=== PATIENT | female | born 1980 | race Caucasian/White ===

== ENCOUNTER 2017-04-11 08:13 | Emergency (ER) | payer OTHER ==
[~2017-04-11] VITALS: Ht 157.4 cm; Wt 48.1 kg
[~2017-04-11 08:13] MED LIST: AMOXICILLIN500 MG PO; BIRTH CONTROL1 EAC1 PO; CLARITIN10 MG PO; CLINDAMYCIN HC300 MG PO; DIFLUCAN150 MG PO; EES400 MG PO; FLONASE 0.05% 121 EA NAS; MOTRIN800 MG PO; PREDNICOT20 MG PO; ZITHROMAX Z PA250 MG PO
[2017-04-11] MEDS ORDERED: NAPROSYN500 MG PO (08:25)
[2017-04-11] MEDS ORDERED: CLEOCIN150 MG PO (08:25)
== END 2017-04-11 09:15 | disposition home or self-care (01) ==
LOC: ED 08:13
DX: K02.9 Dental caries, unspecified (principal); K04.7 Periapical abscess without sinus; F17.200 Nicotine dependence, unspecified, uncomplicated; Z79.899 Other long term (current) drug therapy